=== PATIENT | female | born 1995 | race Hispanic/Latino ===

== ENCOUNTER 2017-08-31 15:18 | Emergency (ER) | payer BC ==
[~2017-08-31] VITALS: Ht 157.5 cm; Wt 78.5 kg
[~2017-08-31 15:18] MED LIST: PRENATABS RX T1 EACH PO
[2017-08-31] MEDS ORDERED: CILOXAN5 ML OD (15:55)
== END 2017-08-31 16:00 | disposition home or self-care (01) ==
LOC: ED 15:18
DX: O99.89 Other specified diseases and conditions complicating pregnancy, childbirth and the puerperium (principal); H10.9 Unspecified conjunctivitis; Z79.899 Other long term (current) drug therapy; Z3A.01 Less than 8 weeks gestation of pregnancy
CPT/HCPCS: 99283

== ENCOUNTER 2018-04-04 09:10 | Inpatient (IN) | payer BC, OTHER ==
[~2018-04-04] VITALS: Ht 154.9 cm; Wt 91.0 kg
[~2018-04-04 09:10] MED LIST changes: +CILOXAN5 ML OD
--- NOTE | 2018-04-04 13:06 | PR ---
[facility] [address] [place], [place] [address] Signed Progress Notes IP Datetime Report Generated by CPN: 04/04/2018 13:06 PROGRESS NOTES: [id number] Impression: Arrest of dilatation/descent Procedures: Sterile Vag Exam Plan: Augmentation Informed Consent Obtain: Vaginal Delivery; Risks, Benefits and Alternatives Discussed VITAL SIGNS: [id number] Vital Signs: Reviewed; Within Normal Limits EXAM: [id number] Dilatation: 2.5 Effacement: 75 Station: -2 Uterine Contractions: q 1 to 6 min MEMBRANES: [id number] Membrane Status: Ruptured Comments: No change in her exam per RN since her admit. As she is ruptured, feel augmentation is needed with low dose pitocin. Discussed with pt. Fetus A: [id number] FHR Baseline: 130 Variability: Moderate 6-25bpm Accelerations: 15X15 Decelerations: Variable FHR Category: Category II Presentation: Vertex Comments on Fetus A: overall reassuring Fetus B: [id number] Signing Physician: Nila Zayas MD Copies: ~ *Electronically Signed* 04/04/18 1306 NILA ZAYAS MD PATIENT NAME: GREGOR LONGO PROGRESS NOTE DATE OF : [birth year] PHYSICIAN: NILA ZAYAS MD RPT #: [id number] REPORT IS CONFIDENTIAL AND NOT TO BE RELEASED WITHOUT AUTHORIZATION
--- NOTE | 2018-04-05 11:39 | PR ---
[facility] [address] [place], [place] [address] Signed PP Progress Notes Datetime Report Generated by MAXINE: 04/05/2018 11:39 SUBJECTIVE: [id number] Pain: Within normal limits Vital Signs: [id number] Vital Signs: Reviewed; Within Normal Limits EXAM: [id number] Cardiovascular: Not Done Respiratory: Not Done Abdomen/Uterus: Abnormal Lochia: Normal Vulva/Perineum: Not Done Breasts: Normal CVA Tenderness: Not Done Extremities: Normal Incision: Not Applicable Progress: Abnormal Exam Comments: Fundus firm, NT @ U-1 H/H 12/12, WBC 14.6, plat 217k IMPRESSION/PLAN/PROCEDURES: [id number] Impression: Normal progression; difficulties Plan: consult; Discharge Progress Notes: Doing well though some issues with breast feeding. She does desire D/C home today, however. Signing Physician: Nila Zayas MD Copies: ~ *Electronically Signed* 04/05/18 1139 NILA ZAYAS MD PATIENT NAME: GREGOR LONGO PROGRESS NOTE DATE OF : 93 PHYSICIAN: NILA ZAYAS MD RPT #: [id number] REPORT IS CONFIDENTIAL AND NOT TO BE RELEASED WITHOUT AUTHORIZATION
== END 2018-04-05 18:25 | disposition home or self-care (01) | DRG 807 ==
LOC: FBC 09:10
PROVIDERS: ADMIT Obstetrics & Gynecology
PROC: 10E0XZZ Delivery of Products of Conception, External Approach (ICD-10-PCS; principal; 2018-04-04)
PROC: 0UQMXZZ Repair Vulva, External Approach (ICD-10-PCS; 2018-04-04)
DX: O42.92 Full-term premature rupture of membranes, unspecified as to length of time between rupture and onset of labor (principal); Z37.0 Single live birth; Z3A.38 38 weeks gestation of pregnancy; O76 Abnormality in fetal heart rate and rhythm complicating labor and delivery; O69.81X0 Labor and delivery complicated by cord around neck, without compression, not applicable or unspecified; O71.82 Other specified trauma to perineum and vulva; O99.214 Obesity complicating childbirth; E66.9 Obesity, unspecified; O99.02 Anemia complicating childbirth; D64.9 Anemia, unspecified; O99.284 Endocrine, nutritional and metabolic diseases complicating childbirth; E03.9 Hypothyroidism, unspecified; O99.89 Other specified diseases and conditions complicating pregnancy, childbirth and the puerperium; R79.89 Other specified abnormal findings of blood chemistry; Z79.899 Other long term (current) drug therapy
CPT/HCPCS: 36415; 85027; J2590; J7120

== ENCOUNTER 2019-09-06 02:09 | Inpatient (IN) | payer BC, OTHER ==
[~2019-09-06] VITALS: Ht 154.9 cm; Wt 93.0 kg
--- NOTE | 2019-09-07 08:19 | PR ---
[facility] [address] [facility] [place], [place] [address] Signed PP Progress Notes Datetime Report Generated by CPWillian: 09/07/2019 08:19 SUBJECTIVE: [id number] Pain: Within normal limits Nausea/Vomiting: Denies Vital Signs: [id number] Vital Signs: Reviewed; Within Normal Limits EXAM: [id number] Cardiovascular: Not Done Respiratory: Not Done Abdomen/Uterus: Abnormal Lochia: Normal Vulva/Perineum: Not Done Breasts: Not Done CVA Tenderness: Not Done Extremities: Normal Incision: Not Applicable Progress: Normal Exam Comments: Fundus firm, NT @ U-1. H/H 11.1/32.8, WBC 13.1, plat 218k IMPRESSION/PLAN/PROCEDURES: [id number] Impression: Normal progression Plan: Discharge Progress Notes: Doing well. She is ready for D/C. Signing Physician: Nila Zayas MD Copies: ~ *Electronically Signed* 09/07/19818 NILA ZAYAS MD PATIENT NAME: GREGOR LONGO PROGRESS NOTE DATE OF : 93 PHYSICIAN: NILA ZAYAS MD RPT #: [id number] REPORT IS CONFIDENTIAL AND NOT TO BE RELEASED WITHOUT AUTHORIZATION
== END 2019-09-07 10:10 | disposition home or self-care (01) | DRG 806 ==
LOC: FBCO 02:09 → FBC 02:21
PROVIDERS: ADMIT Obstetrics & Gynecology
PROC: 10E0XZZ Delivery of Products of Conception, External Approach (ICD-10-PCS; principal; 2019-09-06)
PROC: 0HQ9XZZ Repair Perineum Skin, External Approach (ICD-10-PCS; 2019-09-06)
PROC: 10907ZC Drainage of Amniotic Fluid, Therapeutic from Products of Conception, Via Natural or Artificial Opening (ICD-10-PCS; 2019-09-06)
DX: O62.3 Precipitate labor (principal); O99.324 Drug use complicating childbirth; Z37.0 Single live birth; Z3A.38 38 weeks gestation of pregnancy; O99.214 Obesity complicating childbirth; E66.9 Obesity, unspecified; O70.0 First degree perineal laceration during delivery; O28.2 Abnormal cytological finding on antenatal screening of mother; F12.90 Cannabis use, unspecified, uncomplicated; Z86.19 Personal history of other infectious and parasitic diseases
CPT/HCPCS: 36415; 85027; A9270; J2590

== ENCOUNTER 2021-11-16 00:28 | Emergency (ER) | payer OTHER ==
[~2021-11-16] VITALS: Ht 152.4 cm; Wt 80.3 kg
[2021-11-16] MEDS ORDERED: AMOXICILLIN500 MG PO (01:10)
== END 2021-11-16 01:27 | disposition home or self-care (01) ==
LOC: ED 00:28
DX: H66.92 Otitis media, unspecified, left ear (principal); Z87.891 Personal history of nicotine dependence; Z88.1 Allergy status to other antibiotic agents
CPT/HCPCS: 99282

== ENCOUNTER 2021-11-29 08:55 | Inpatient (IN) | payer OTHER ==
[~2021-11-29] VITALS: Ht 154.9 cm; Wt 78.9 kg
[~2021-11-29 08:55] MED LIST changes: +AMOXICILLIN500 MG PO
--- NOTE | 2021-11-29 09:25 | NUR ---
RT COLLECTED RAPID COVID 19 SWAB AT THIS TIME WITH NO COMPLICATIONS.
--- NOTE | 2021-11-30 08:08 | PR ---
[facility] [address] [facility] [place] [address] Signed PP Progress Notes Datetime Report Generated by CPN: 11/30/2021 08:08 SUBJECTIVE: [id number] Pain: Within Normal Limits Vital Signs: [id number] Vital Signs: Reviewed; Within Normal Limits Cardiovascular: Not Done Respiratory: Not Done Abdomen/Uterus: Abnormal Lochia: Normal Vulva/Perineum: Not Done Breasts: Not Done CVA Tenderness: Not Done Extremities: Normal Incision: Not Applicable Progress: Normal Exam Comments: Fundus firm, NT @ U. H/H 11.8/34.9, WBC 12.9, plat 264k IMPRESSION/PLAN/PROCEDURES: [id number] Impression: Normal Progression Plan: Continue Present Management Procedures: None Progress Notes: Doing well. Will continue present management. Signing Physician: Nila Zayas MD Copies: ~ *Electronically Signed* 11/30/21807 NILA ZAYAS MD PATIENT NAME: GREGOR LONGO PROGRESS NOTE DATE OF : 93 PHYSICIAN: NILA ZAYAS MD RPT #: [id number] REPORT IS CONFIDENTIAL AND NOT TO BE RELEASED WITHOUT AUTHORIZATION
== END 2021-11-30 19:05 | disposition home or self-care (01) | DRG 806 ==
LOC: FBCO → FBC 09:10 → FBCO 12-06 09:30
PROVIDERS: ADMIT Obstetrics & Gynecology; ATTEND Obstetrics & Gynecology
PROC: 10E0XZZ Delivery of Products of Conception, External Approach (ICD-10-PCS; principal; 2021-11-29)
DX: O62.3 Precipitate labor (principal); O99.324 Drug use complicating childbirth; Z37.0 Single live birth; Z20.822 Contact with and (suspected) exposure to COVID-19; O99.824 Streptococcus B carrier state complicating childbirth; O77.0 Labor and delivery complicated by meconium in amniotic fluid; Z67.40 Type O blood, Rh positive; Z3A.39 39 weeks gestation of pregnancy; O99.214 Obesity complicating childbirth; F12.90 Cannabis use, unspecified, uncomplicated
CPT/HCPCS: 36415; 85027; 86850; 86900; 86901; 87502; A9270; C9803; J2540; J2590; J7121; U0003